=== PATIENT | female | born 1995 | race Caucasian/White ===

== ENCOUNTER 2023-03-01 13:24 | Emergency (ER) | payer OTHER ==
[~2023-03-01] VITALS: Ht 154.9 cm; Wt 48.1 kg
[2023-03-01 13:34] VITALS: BP 117/83
== END 2023-03-01 14:00 | disposition home or self-care (01) ==
LOC: ER 13:24
DX: Z76.0 Encounter for issue of repeat prescription (principal); G40.909 Epilepsy, unspecified, not intractable, without status epilepticus; Z79.899 Other long term (current) drug therapy; Z88.0 Allergy status to penicillin
CPT/HCPCS: 99281; A9270